=== PATIENT | female | born 1985 | race Caucasian/White ===

== ENCOUNTER 2019-04-30 12:49 | Emergency (ER) | payer BC, SELFPAY ==
[2019-04-30 13:03] VITALS: BP 111/68; PULSE 112; RESP 20; TEMP 39.6; O2SAT 100
--- NOTE | 2019-04-30 13:03 | ED.GENADULT ---
HPI - General Adult General Chief complaint: Upper Respiratory Infection Stated complaint: FEVER/CHILLS Time Seen by Provider: 04/30/19 13:03 Source: patient and RN notes reviewed Mode of arrival: ambulatory Limitations: no limitations History of Present Illness HPI narrative: 33-year-old female with complaints of upper respiratory infection symptoms, congestion, body aches, and cough for 2 days. Ibuprofen (200mg last this morning at 08:30) with little relief. Dry cough. No chest congestion. Rhinorrhea and nasal congestion. No exacerbating factors. High fevers, highest 101.5F, orally with chills and sweats. No nausea, vomiting, and abdominal pain. Denies sore throat, chest pain, dyspnea, coughing up blood, difficulty swallowing, jaw pain, dental pain, facial pain, foreign body sensation, and rash. Ramila denies being , LMP 03/20/20 says she is due today or tomorrow. Some parts of this dictation were generated by voice recognition software and may contain typographical and/or grammatical inaccuracies. Related Data Allergies Allergy/AdvReac Type Severity Reaction Status Date / Time cat dander Allergy Unknown Verified 02/22/19 10:58 Review of Systems Review of Systems: Narrative: CONSTITUTIONAL: Complains of fever, chills, sweats. EYES: Denies visual changes, redness, discharge. ENT: Complains of rhinorrhea, congestion. Denies sore throat. otalgia. CARDIOVASCULAR: Denies chest pain, palpitations, edema. RESPIRATORY: Denies dyspnea, wheezing. Complains of dry cough. GASTROINTESTINAL: Denies abdominal pain, nausea, vomiting, diarrhea. GENITOURINARY: Denies dysuria, hematuria, abnormal discharge SKIN: Denies rash or itching. MUSCULOSKELETAL: Denies acute back pain, joint pain, or myalgia. NEUROLOGIC: Denies numbness or focal weakness. PSYCHIATRIC: Denies anxiety or depression. PMFSH Social History Social History Gender identity (if verbalized by the patient): Female Comments At time of signature, agree with nurse past medical, surgical, social, and family history. There is no relevant family history pertinent to the presenting complaint. Exam Narrative: Exam Narrative: GENERAL: This is a well-nourished, well-developed patient, in no apparent distress. Speaks in full sentences and ambulates with steady gait without dyspnea. HEAD: normocephalic, atraumatic. EYES: PERRL. Sclera clear/white. Vision is grossly intact. EARS: External ears normal, auditory canals clear and without drainage, TMs normal without perforation. Hearing grossly intact. NOSE: External nose normal with no obvious nasal discharge, nares with mild redness and enlarged turbinates, clear rhinorrhea. THROAT: Mucous membranes moist, posterior pharynx with PND, mild erythema, and no exudate to tonsils. Tonsils normal. No drainage, no concern for Peritonsillar abscess. No drooling, trismus, or neck swelling. NECK: Neck supple, non-tender without lymphadenopathy, masses or thyromegaly. CARDIOVASCULAR: Regular rate and rhythm without murmurs, gallops, or rubs. RESPIRATORY: Clear to auscultation. Breath sounds equal bilaterally. No wheezes, rales, or rhonchi. GASTROINTESTINAL: Abdomen soft, non-tender, nondistended. Bowel sounds are active. No hepato-splenomegaly, or palpable masses. No guarding. SKIN: warm, intact with no suspicious lesions or rash, good texture and turgor. NEURO: awake, alert, and oriented to person, place and time. There were no obvious focal neurologic abnormalities. EXTREMITIES: No clubbing, cyanosis, or edema. BACK: Nontender without deformity or crepitance. No flank tenderness with palpation. Bry Coma Scale Eye Opening: Spontaneous 4 Emerson Coma Scale Motor: Obeys Commands 6 Bry Coma Scale Verbal: Oriented 5 Course Vital Signs Vital signs: Vital Signs Temperature 39.6 C H 04/30/19 13:03 Pulse Rate 112 H 04/30/19 13:03 Respiratory Rate 04/30/19
[2019-04-30 13:11] VITALS: BP 113/64; PULSE 77; RESP 20; TEMP 37.7; O2SAT 98
[2019-04-30 13:39] VITALS: BP 109/69; PULSE 90; RESP 20; TEMP 38.3; O2SAT 100
== END 2019-04-30 13:13 | disposition home or self-care (01) ==
PROVIDERS: Emergency Provider Nurse Practitioner Family
DX: J10.1 Influenza due to other identified influenza virus with other respiratory manifestations (principal)
CPT/HCPCS: 87804; 99213; G0463

== ENCOUNTER 2021-09-07 14:48 | Emergency (ER) | payer OTHER, SELFPAY ==
[2021-09-07 15:02] VITALS: BP 108/81; PULSE 92; RESP 18; TEMP 36.5; O2SAT 100
--- NOTE | 2021-09-07 15:02 | ED.URI ---
HPI - URI/Sore Throat General Chief Complaint: Upper Respiratory Infection Stated Complaint: Diarrhea,Shortness of Breath,Rt Ear Irritation Time Seen by Provider: 09/07/21 15:02 History of Present Illness HPI Narrative: Ramila Avendano is a 36 yo female with no PMH wgo comes to express care with c/o R ear pain and diarrhea. States that Imodium x 1and Tums not,helpful for diarrhea. Patient's had symptoms of diarrhea for almost 6 days that started with abdominal pain and diarrhea now the pain is gone away and is just diarrhea; has been taking water but is unable to really eat; he has had 30 ounces of water today states that when she eats she has diarrhea. This morning she felt dizzy when she tried to get up. Related Data Allergies Allergy/AdvReac Type Severity Reaction Status Date / Time No Known Allergies Allergy Verified 09/07/21 14:50 Review of Systems Review of Systems: CONSTITUTIONAL: Denies fever, chills, sweats. EYES: Denies visual changes, redness, discharge. ENT: Denies rhinorrhea, congestion, sore throat, right otalgia. CARDIOVASCULAR: Denies chest pain, palpitations, edema. RESPIRATORY: Denies dyspnea, wheezing, cough GASTROINTESTINAL: Denies abdominal pain, nausea, vomiting, is having diarrhea x6 days. GENITOURINARY: Denies dysuria, hematuria, abnormal discharge SKIN: Denies rash or itching. NEUROLOGIC: Denies numbness, or focal weakness. PSYCHIATRIC: Denies anxiety or depression. PMFSH Past Medical History Medical History No acute medical problems Social History Social History (Updated 09/07/21 @ 15:24 by Desire Velazquez CNP) Smoking status: Never smoker Alcohol intake: current Gender identity (if verbalized by the patient): Female Comments At time of signature, I agree with nursing past medical, surgical, social and family history. There is no relevant family history pertinent to the presenting complaint. Exam Narrative: GENERAL: This is a well-nourished, well-developed patient, in moderatedistress. HEAD: normocephalic, atraumatic. EYES: Sclera clear/white. Vision is grossly intact. EARS: External ears normal, auditory canals clear on left and erythema on right and without drainage, TMs normal without perforation. Hearing grossly intact. NOSE: External nose normal without nasal discharge, nares without redness, mild rhinorrhea. THROAT: Mucous membranes moist, posterior pharynx mild erythema NECK: Neck supple, non-tender CARDIOVASCULAR: Regular rate and rhythm without murmurs, gallops, or rubs. RESPIRATORY: Clear to auscultation. Breath sounds equal bilaterally. No wheezes, rales, or rhonchi. GASTROINTESTINAL: Abdomen soft, non-tender, hyperactive bowel sounds SKIN: warm, intact with no suspicious lesions or rash, good texture and turgor. NEURO: awake, alert, and oriented to person, place and time. There were no obvious focal neurologic abnormalities. Steady gait EXTREMITIES: Normal range of motion. BACK: Nontender without deformity Course Course Emergency Course: Patient has had diarrhea x6 days, has had abdominal pain that has resolved but continues to have difficulty staying hydrated; has right ear pain also Ear will be treated with polymyxin and to take Zyrtec every day for the next week to 10 days Louis management of diarrhea with Imodium and follow box directions, started on Bentyl, and Protonix, and brat diet-patient is being treated like she has enteritis she is to call one of the physicians on the physician referral list has been provided to her for follow-up Precautions given for her to go to the ER Level of Care: Express Care Visit Vital Signs Vital signs: Vital Signs Temperature 97.7 F 09/07/21 15:02 Pulse Rate 92 09/07/21 15:02 Respiratory Rate 18 09/07/21 15:02 Blood Pressure 108/81 09/07/21 15:02 Pulse Oximetry 100 09/07/21 15:02 Oxygen Delivery Room Air 09/07/21 15:02 Temperature 97.7 F
== END 2021-09-07 15:30 | disposition home or self-care (01) ==
LOC: EXPTROY 14:51
PROVIDERS: Emergency Provider Nurse Practitioner
DX: K52.9 Noninfective gastroenteritis and colitis, unspecified (principal); H66.001 Acute suppurative otitis media without spontaneous rupture of ear drum, right ear
CPT/HCPCS: 87804; 99213; G0463

== ENCOUNTER 2022-04-11 09:33 | Emergency (ER) | payer OTHER, SELFPAY ==
[2022-04-11 09:44] VITALS: BP 94/67; PULSE 86; RESP 16; TEMP 37.1; O2SAT 100
--- NOTE | 2022-04-11 09:45 | ED.URI ---
HPI - URI/Sore Throat General Chief Complaint: Upper Respiratory Infection Stated Complaint: Sore Throat,Rt Ear Irritation Time Seen by Provider: 04/11/22 09:49 History of Present Illness HPI Narrative: 36 y/o female presented for c/o sore throat and right ear pain for 2 days. Endorses temperature up to 100.2 last night. Pain is worse with swallowing. Denies associated sinus pressure, congestion, cough, shortness of breath, wheezing, nausea, vomiting, diarrhea. Denies sick contacts. She has not taking anything for symptoms. Related Data Allergies Allergy/AdvReac Type Severity Reaction Status Date / Time No Known Allergies Allergy Verified 04/11/22 09:41 Review of Systems Review of Systems: CONSTITUTIONAL: Denies body aches, fever, chills, or sweats. EYES: Denies visual changes, redness, or discharge. ENT: Denies rhinorrhea, congestion CARDIOVASCULAR: Denies chest pain, palpitations, or edema. RESPIRATORY: Denies dyspnea. GASTROINTESTINAL: Denies abdominal pain, nausea, vomiting, or diarrhea. SKIN: Denies rash, itching, or wounds. MUSCULOSKELETAL: Denies back pain, joint pain, or myalgia. NEUROLOGIC: Denies headache PMFSH Past Medical History Medical History No acute medical problems Social History Social History Smoking status: Never smoker Alcohol intake: current Gender identity (if verbalized by the patient): Female Exam Narrative: GENERAL: Ill-appearing, no acute distress. EYES: conjunctivae clear ENT: Mucous membranes moist. Left TM pearly montoya with normal light reflex; Right TM with dull light reflex and effusion; no tragal tenderness. Oropharynx erythematous Tonsils enlarged 2+ without exudate. No drooling, no hoarseness, no trismus, uvula midline. No tripod positioning, hot potato voice, or soft palate swelling. NECK: Supple. No lymphadenopathy CHEST: Clear to auscultation, breath sounds equal. HEART: Regular rate and rhythm. No murmur heard. SKIN: Warm, dry, no rash. NEURO: Alert and oriented x3. Course Course Emergency Course: Patient is aware of diagnosis, understands and agrees to treatment plan. Anticipatory guidance given. Patient agrees to follow-up as directed and is aware of reasons to seek care at the emergency department. Portions of this record may have been created with voice recognition software Level of Care: Express Care Visit Vital Signs Vital signs: Vital Signs Temperature 98.8 F 04/11/22 09:44 Pulse Rate 86 04/11/22 09:44 Respiratory Rate 16 04/11/22 09:44 Blood Pressure 94/67 L 04/11/22 09:44 Pulse Oximetry 100 04/11/22 09:44 Oxygen Delivery Room Air 04/11/22 09:44 Temperature 98.8 F 04/11/22 09:44 Pulse Rate 86 04/11/22 09:44 Respiratory Rate 16 04/11/22 09:44 Blood Pressure 94/67 L 04/11/22 09:44 Pulse Oximetry 100 04/11/22 09:44 Oxygen Delivery Room Air 04/11/22 09:44 MDM - URI/Sore Throat MDM Narrative Medical decision making narrative: strep result reviewed with pt. Advise supportive treatments. Patient is appropriate for outpatient treatment and follow-up. Differential Diagnosis Differential diagnosis: Likely upper respiratory infection, otitis media, sinusitis, viral infection, influenza and pharyngitis Discharge Plan Discharge Clinical Impression: Strep pharyngitis Patient Disposition: Home, Self-Care Condition: Stable Instructions: Antibiotic Form Additional Instructions: - Take the antibiotic as directed. Fever and sore throat typically resolve within one to three days. Most patients can return to work after 12 to 24 hours of antibiotic therapy, provided you are fever free and otherwise well. -Eat and drink things that are easy to swallow, like soft foods, cool liquids, tea with honey, or popsicles . -Salt water gargles and/or may use topical anesthetic ( Chloraseptic
== END 2022-04-11 10:07 | disposition home or self-care (01) ==
PROVIDERS: Emergency Provider Nurse Practitioner Family
DX: J02.0 Streptococcal pharyngitis (principal)
CPT/HCPCS: 87880; 99213; G0463

== ENCOUNTER 2024-08-11 15:24 | Emergency (ER) | payer OTHER, SELFPAY ==
--- NOTE | ~2024-08-11 | XR_ITS ---
XR ankle LT min 3V Ordering provider: Boaz Richey APRN History: . ankle swelling/pain,no injury,she is a runner . Comparison: None. FINDINGS: BONES: No acute fracture or dislocation. JOINT SPACES: The ankle mortise is normal. SOFT TISSUES: Normal. IMPRESSION: No acute osseous abnormality left ankle. Reviewed, dictated and finalized at location A.
--- OUTSIDE RECORDS SUMMARY | 2024-08-11 15:28 | XMS_ITS | Clinical Summary ---
Author Organization [facility] Address [address] [place] [address] Care Team Providers Care Indigo Vat Tender Cloth Name Role Phone Jessica Christian SYSTEM PROGRAMMER-ASTRONOMY PROFESSOR Primary Care Provider Source Comments [facility],non-owned Affiliates and Associated Physician Practices is amultiple site organization consisting of ambulatory clinics and hospital sitesin [place], [place], [place] and [place]. This disclosure is being madepursuant to the Care Everywhere program and may not contain all information available regarding this patient. Last updated 17.[facility] Allergies No known active allergies Medications * Be aware that medications may not be up to date on this document. Alwaysverify current medications with the patient. fluticasone propionate (FLONASE) 50 MCG/ACT nasal spray [place] 2 sprays into each nostril once daily 1 bottles 05/21/2017 Active ibuprofen (Motrin) 800 MG tablet Take 1 (one) tablet by mouth every 6 hours as needed for Pain 30 tablet 09/26/2022 Active cyclobenzaprine (Flexeril) 10 MG tablet Take 1 (one) tablet by mouth 3 times daily as needed for Muscle Spasms 30 tablet 09/26/2022 Active Family History Relation Name Status Comments Father Alive Mother Alive Social History Tobacco Use Types Packs/Day Years Used Date Smoking Tobacco: Never Smokeless Tobacco: Never Comments No Sex and Gender Information Value Date Recorded Sex Assigned at Not on file Legal Sex Female 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 Gender Identity Not on file Sexual Orientation Not on file Last Filed Vital Signs Vital Sign Reading Time Taken Comments Blood Pressure 110/64 09/26/2022 6:00 PM CDT Pulse 87 09/26/2022 4:58 PM CDT Temperature 36.9 C (98.4 F) 09/26/2022 4:58 PM CDT Respiratory Rate 18 09/26/2022 4:58 PM CDT Oxygen Saturation 98% 09/26/2022 6:00 PM CDT Inhaled Oxygen Concentration - - Weight 65.8 kg (145 lb) 09/26/2022 4:58 PM CDT Height 160 cm (5' 3 ) 09/26/2022 4:58 PM CDT Body Mass Index 25.69 09/26/2022 4:58 PM CDT Plan of Treatment Health Maintenance Due Date Last Done Comments MAMMOGRAM 1983 PAP SMEAR 1983 DTAP/TDAP/TD VACCINES (1 - Tdap) 06/12/2002 HEPATITIS B VACCINE (1 of 3 - 19+ 3-dose series) 06/12/2002 COVID-19 VACCINE ( - 2023-2 5 season) 2023 05/21/2020, 04/22/2020 DEPRESSION SCREENING 04/02/2024 INFLUENZA VACCINE (Season Ended) 2024 03/12/2018, 02/12/2017, 03/13/2015 LIPID TESTING 05/29/2027 05/29/2022 ZOSTER VACCINE (1 of 2) 06/12/2033 HEPATITIS C SCREENING Completed 06/05/2019 HIV SCREENING Completed 10/20/2019, 06/05/2019 HIB VACCINE Aged Out No longer eligi ble based on patient's age to complete this topic HPV VACCINE Aged Out No longer eligi ble based on patient's age to complete this topic MENINGOCOCCAL (Group B) VACCINE SHARED DECISION-MAKING Aged Out No longer eligible based on patient's age to complete this topic MENINGOCOCCAL GROUPS A/C/Y/W VACCINE Aged Out No longer eligible b ased on patient's age to complete this topic PNEUMOCOCCAL VACCINE Aged Out No long er eligible based on patient's age to complete this topic Insurance AETNA TPL THIRD [employer]PUBL[place] LIABILITY AETNA Care Teams Indigo Vat Tender Cloth Relationship Specialty Start Date End Date Jessica Christian APRN-MARJ [id number] [facility] [address] [place] [address] PCP - General 09/26/22
--- NOTE | 2024-08-11 15:30 | ED_ITS ---
HPI - Extremity Injury (Lower) General Chief Complaint: Extremity Injury, Lower Stated Complaint: swollen ankle Time Seen by Provider: 08/11/24 15:29 Source: patient Mode of arrival: ambulatory Limitations: no limitations History of Present Illness HPI Narrative: Ramila is a 39-year-old female patient presenting to the clinic today with complaints of left ankle swelling and discomfort. No known injury. She reports swelling is worse as the day gradually progresses. It is best in the morning when she wakes up. Is having pain over the left medial ankle. Patient is an active runner Related Data Allergies Allergy/AdvReac Type Severity Reaction Status Date / Time No Known Allergies Allergy Verified 08/11/24 16:04 Review of Systems Review of Systems: Pertinent positives per HPI. Patient denies any fever, chills, rash, headache, visual changes, dizziness, cough, runny nose, sore throat, shortness of breath, chest pain, palpitations, nausea, vomiting, diarrhea, constipation, abdominal pain, or any urinary issues. PMFSH Past Medical History Medical History No acute medical problems Social History Social History Smoking status: Never smoker Alcohol intake: current Gender identity (if verbalized by the patient): Female Comments At the time of my signature, I reviewed and agree with the nursing past medical, surgical, social, and family history. There is no relevant family history pertinent to the patient complaint. Exam Narrative: General: Well-developed, well nourished, in no apparent distress Head: Normocephalic, atraumatic. Cardio: Regular rate and rhythm, s1 and s2 normal, no murmur appreciated. Resp: Clear to auscultation bilaterally, no rhonchi, rales, wheezing or rubs. Musculoskeletal: No deformity, no varicose veins visible, mild swelling noted to the left ankle, mild tender to palpation over the medial left ankle, grossly normal range of motion, muscle strength strong and equal, peripheral pulse st [place], no cyanosis, normal gait and station Course Course Emergency Course: Portions of this record may have been created with voice recognition software. Level of Care: Express Care Visit Vital Signs Vital signs: Vital Signs Temperature 36.8 C 08/11/24 15:36 Pulse Rate 72 08/11/24 15:36 Respiratory Rate 18 08/11/24 15:36 Blood Pressure 131/82 08/11/24 15:36 Pulse Oximetry 100 08/11/24 15:36 Oxygen Delivery Room Air 08/11/24 15:36 Temperature 36.8 C 08/11/24 15:36 Pulse Rate 72 08/11/24 15:36 Respiratory Rate 18 08/11/24 15:36 Blood Pressure 131/82 08/11/24 15:36 Pulse Oximetry 100 08/11/24 15:36 Oxygen Delivery Room Air 08/11/24 15:36 Vital signs reviewed MDM - Extremity Injury (Lower) MDM Narrative Medical decision making narrative: At the time of visit patient is resting comfortably on the exam table. Patient appears to be nontoxic. Diagnostics: X-ray of the left ankle was performed and negative for any sign of fracture or malalignment Plan: I suspect patient has left ankle joint swelling. Supportive measures were discussed with the patient and they voiced understanding discharge instructions and agrees to treatment plan. Return precautions reviewed Differential Diagnosis Differential diagnosis: Likely ankle sprain and strain, ankle fracture and other (Venous insufficiency, lower extremity edema, stress fracture,) Imaging Data Radiologist's impression: ITS Impressions Ankle X-Ray 08/11/24 16:05 IMPRESSION: No acute osseous abnormality left ankle. Discharge Plan Discharge Clinical Impression: Left ankle swelling Patient Disposition: Home Condition: Stable Instructions: Antibiotic Form, Swollen Ankle Joint (ED) Additional Instructions: X-rays negative for any acute osseous abnormality of the left ankle Rest, ice, elevate, and wear nhung wrap as directed Tylenol/motrin for pain as discussed. Follow up with your PCP if symptoms persist more than 1 week. Patient Language: Upper Sorbian Prescriptions: No Action pantoprazole [Protonix] 20 mg tablet,delayed release (DR/EC) 20 mg PO QAM Qty: 14 0RF Follow-up/Referrals: Gino,Jessica Marin APRN [Primary Care Provider] - Time of Disposition: 16:14 Quality NIHSS Nursing Documentation ED NIHSS nursing documentation: reviewed/agree
--- OUTSIDE RECORDS SUMMARY | 2024-08-11 15:30 | XMS_ITS | Encounter Summary ---
Author Organization [facility] Address [address] [place] [address] Care Team Providers Care Trust Administrator Name Role Phone Jessica Christian APRN Primary Care Provider [phone]- [phone] Encounter Details Date Type Department Care Team (Late st Contact Info) Description 05/02/[address] [facility] Family & Internal Medicine [facility] [address] [place] [address] [employer], [facility] Provider Mammo results Social History Tobacco Use Types Packs/Day Years Used Date Smoking Tobacco: Never Smokeless Tobacco: Never Alcohol Use Standard Drinks/Week Comments Not Currently 0 (1 standard drink = 0.6 oz pur e alcohol) Overall Financial Resource Strain (CARDIA) Answe r Date Recorded How hard is it for you to pa y for the very basics like food, housing, medical care, and heating? Not hard at all 05/25/2022 PHQ-2 Answer Date Recorded Patient Health Questionnaire-2 Score 0 12/28/2023 Hunger Vital Sign Answer Date Recorded Within the past 12 months, y ou worried that your food would run out before you got the money to buy more. Never true 05/25/19 23 Within the past 12 months, t he food you bought just didn't last and you didn't have money to get more. Never true 05/25/2022 PRAPARE - Transportation Answer Date Re corded In the past 12 months, has l ack of transportation kept you from medical appointments or from getting medications? No 05/04 In the past 12 months, has l ack of transportation kept you from meetings, work, or from getting things needed for daily living? No 05/25/2022 Housing Stability Vital Sign Answer [place] e Recorded In the last 12 months, was t here a time when you were not able to pay the mortgage or rent on time? No 05/25/2022 In the last 12 months, how many places have you lived? 1 05/25/2022 In the last 12 months, was t here a time when you did not have a steady place to sleep or slept in a retirement (including now)? No 05/25/2022 Comments No Sex and Gender Information Value Date Recorded Sex Assigned at Not on file Legal Sex Female 7:00 PM CDT Gender Identity Not on file Sexual Orientation Not on file documented as of this encounter Functional Status * RETIRED Are you deaf or do you have serious difficulty hearing Answer Date of Assessment Author Status No 12/31/2019 5:48 AM CDT Activ e * RETIRED Are you blind or do you have serious difficulty seeing, even when wearing glasses? Answer Date of Assessment Author Status No 12/31/2019 5:48 AM CDT Activ e * Do you have serious difficulty walking or climbing stairs? Answer Date of Assessment Author Status No 12/31/2019 5:48 AM CDT Carlota Klein RN Active * Do you have difficulty dressing or bathing? Answer Date of Assessment Author Status No 12/31/2019 5:48 AM CDT Carlota Klein RN Active * Because of a physical, mental, or emotional condition, do you have difficulty doing errands alone such as visiting a doctor's office or shopping? Answer Date of Assessment Author Status No 12/31/2019 5:48 AM CDT Carlota Klein RN Active documented as of this encounter Mental Status * Because of a physical, mental, or emotional condition, do you have serious difficulty concentrating, remembering, or making decisions? Answer Entry Date Author Status No 12/31/2019 5:48 AM LUIS [place] Carlota Klein RN Active documented in this encounter Plan of Treatment Upcoming Encounters Date Type Department Care Team (Late st Contact Info) Description 08/15/2024 8:20 AM CDT Office Visit [facility] Family & Internal Medicine [facility] [address] [place] [address] Jessica Christian APRN [id number] [address] 12/29/2024 2:20 PM CDT Office Visit [facility] Family & Internal Medicine [facility] [address] [place] [address] Jessica Christian APRN [id number] [address] documented as of this encounter Visit Diagnoses Not on filedocumented in this encounter Additional Health Concerns Assessment Noted Time PHQ-9 Depression Total Score: 1 12/28/19 24 11:34 AM CDT documented as of this encounter Care Teams Trust Administrator Relationship Specialty Start Date End Date Jessica Christian APRN [id number] [address] PCP - General NURSE PRACTITIONER 05/09/22 documented as of this encounter
--- OUTSIDE RECORDS SUMMARY | 2024-08-11 15:30 | XMS_ITS | Encounter Summary ---
Author Organization [facility] Address [address] [place] [address] Care Team Providers Care Billing Spec Name Role Phone Jessica Christian APRN Primary Care Provider [phone]- [phone] Encounter Details Date Type Department Care Team (Late st Contact Info) Description 03/28/2024 [employer] Message Enc [facility] Family & Internal Medicine [facility] [address] [place] [address] Jessica Christian APRN [id number] [address] Mammogram order Social History Tobacco Use Types Packs/Day Years [...] money to buy more. Never true 05/25/19 Within the past 12 months, t he [...] place to sleep or slept in a half-way (including now)? No 05/25/2022 Comments No Sex [...] Assessment Author Status No 12/31/2019 5:48 AM Carloat May RN Active * Do you have difficulty dressing or bathing? Answer Date of Assessment Author Status No 12/31/2019 5:48 AM Carlota May RN Active * Because of a physical, mental, or emotional condition, do you have difficulty doing errands alone such as visiting a doctor's office or shopping? Answer Date of Assessment Author Status No 12/31/2019 5:48 AM Carlota May RN Active documented as of this encounter Mental Status * Because of a physical, mental, or emotional condition, do you have serious difficulty concentrating, remembering, or making decisions? Answer Entry Date Author Status No 12/31/2019 5:48 AM CDT Veller, Carlota A, RN Active documented in this encounter Plan of Treatment Upcoming Encounters Date Type Department Care Team (Late st Contact Info) Description 08/15/2024 8:20 AM CDT Office Visit [facility] Family & Internal Medicine [facility] [address] [place] [phone] Jessica Christian APRN [id number] [address] 12/29/2024 2:20 PM CDT Office Visit [facility] Family & Internal [facility] [address] [place] [address] Jessica Christian APRN [id number] [address] documented as of this encounter Visit Diagnoses Not on filedocumented in this encounter Additional Health Concerns Assessment Noted Time PHQ-9 Depression Total Score: 1 12/28/19 24 11:34 AM CDT documented as of this encounter Care Teams Billing Spec Relationship Specialty Start Date End Date Jessica Christian APRN [id number] [address] PCP - General NURSE PRACTITIONER 05/09/22 documented as of this encounter
--- OUTSIDE RECORDS SUMMARY | 2024-08-11 15:30 | XMS_ITS | Clinical Summary ---
Author Organization [facility] Address [address] [place] [address] Care Team Providers Care Derrick Barge Operator Name Role Phone Jessica Christian APRN Primary Care Provider [phone] Allergies Active Allergy Reactions Criticality Noted Date Comments Cat Dander Itching,Runny Nose,Shortness of Breath High 12/28/2023 Medications No known medications Active Problems No known active problems Resolved Problems Problem Noted Date Diagnosed Date Resolved Date ([facility]) 12/31/2019 11/18/19 23 Immunizations Immunization Administration Dates Next Due Influenza (Generic) 02/12/2017,03/13/2015 Influenza Adult (Generic) 03/12/2018 MODERNA COVID-19 (12+) MRNA, LNP-S, PF, 100 MCG/ 0.5 ML DOSE 05/21/2020,04/22/2020 Tdap (Generic) 10/20/2019 Family History Medical History Relation Comments COPD Maternal Grandmother Breast Cancer Mother Cancer Mother Breast Cancer Paternal Aunt 1 Cancer Paternal Aunt 1 Breast cancer Breast Cancer Paternal Aunt 2 Breast Cancer Paternal Aunt 3 UNSURE OF AGE Breast Cancer Paternal Grandmother Relation Status Comments Father Alive Maternal Grandmother Mother Alive Paternal Aunt 1 Alive Paternal Aunt 2 Alive Paternal Aunt 3 Alive Paternal Grandmother Social History Tobacco Use Types Packs/Day Years Used Date Smoking Tobacco: Never Smokeless Tobacco: Never Tobacco Cessation:Counseling Given: No Alcohol Use Standard Drinks/Week Comments Not Currently 0 (1 standard drink = 0.6 oz pur e alcohol) Overall Financial Resource Strain (CARDIA) Thaie r Date Recorded How hard is it [...] place to sleep or slept in a fdc (including now)? No 05/25/2022 Comments No Sex and Gender Information Value Date Recorded Sex Assigned at Not on file Legal Sex Female 7:00 PM CDT Gender Identity Not on file Sexual Orientation Not on file Last Filed Vital Signs Vital Sign Reading Time Taken Comments Blood Pressure 110/73 12/28/2023 10:47 AM CDT Pulse 64 12/28/2023 10:47 AM CDT Temperature 35.5 C (95.9 F) 12/28/2023 10:47 AM CDT Respiratory Rate 16 12/28/2023 10:47 AM CDT Oxygen Saturation 97% 12/28/2023 10:47 AM CDT Inhaled Oxygen Concentration - - Weight 68.7 kg (151 lb 6.4 oz) 12/28/2023 10:47 AM CDT Height 160 cm (5' 3 ) 12/28/2023 10:47 AM CDT Body Mass Index 26.82 12/28/2023 10:47 AM CDT Plan of Treatment Upcoming Encounters Date Type Department Care Team (Late st Contact Info) Description 08/15/2024 8:20 AM CDT Office Visit [facility] [address] [place] [phone] Jessica Christian, SOFTWARE TEAM LEADER [address] [place] [phone] 12/29/2024 2:20 PM CDT Office Visit [facility] [address] [place] [phone] Jessica Christian, SOFTWARE TEAM LEADER [address] [place] [phone] Health Maintenance Due Date Last Done Comments Cervical Cancer Screening Pa p Smear (Age 30 to 64) Every 3 Years 1983 Hepatitis C 06/12/2001 Hepatitis B Vaccines (1 of 3 - 19+ 3-dose series) 06/12/2002 Cervical Cancer Screening Pa p with HPV Testing (Age 30 to 64) Every 5 Years 06/12/2013 Cervical Cancer Screening with HPV 06/12/2013 PHQ-2 (Physician [place]) 04/02/2024 12/28/2023 Annual Physical 12/27/2024 12/28/2023, 05/22/2022 COVID-19 Vaccine (3 - 2023-2 5 season) 2024 05/21/2020, 04/22/2020 Postponed from 12/02/2023 (Patient Refused) Mammogram Screening 05/02/2026 05/02/2024, 04/27/2023 DTaP, Tdap and Td Vaccines ( 2 - Td or Tdap) 10/19/2029 10/20/2019 HPV Vaccines Aged Out No longer eligi ble based on patient's age to complete this topic Meningococcal B Vaccine Aged Out No l onger eligible based on patient's age to complete this topic Meningococcal Vaccine Aged Out No isis paddy eligible based on patient's age to complete this topic Pneumococcal Vaccine: Pediatrics (0 to 5 Years) and At-Risk Patients (6 to 49 Years) Aged Out No longer eligible b ased on patient's age to complete this topic RSV Immunizations Under 20 Months Aged Out No longer eligible b ased on patient's age to complete this topic Procedures Procedure Name Priority Date/Time Associated Diagnosis Comments MG SCREENING W TRENT TIKI DIGI Routine 05/02/2024 12:19 PM BUILDING ASSOCIATE Encounter for screening mammogram for malignant neoplasm of breast Family history of breast cancer from Last 3 Months or Most Recently Relevant to Health Maintenance Results * MG SCREENING W TRENT TIKI DIGI (05/02/2024 12:19 PM BUILDING ASSOCIATE) Anatomical Region Laterality Modality Breast Bilateral Mammography 05/02/2024 12:4 6 PM BUILDING ASSOCIATE Impressions 05/02/2024 12:52 PM BUILDING ASSOCIATE ===== IMPRESSION: ===== 1. Stable mammographic appearance with no new findings to suggest malignancy in either breast. Assessment: ACR BI-RADS 1 - NEGATIVE Recommendation: 1:Routine Screening Bilateral Comments: Ordered By: JESSICA CHRISTIAN Interpreted By: Thao Sullivan, 05/02/2024 12:46 PM Narrative 05/02/2024 12:52 PM BUILDING ASSOCIATE [facility] [address] [place] [address] EXAMINATION: Digital bilateral screening mammogram with 3-D tomosynthesis EXAM DATE/TIME: 05/02/2024 10:53 AM REASON FOR EXAM: screening for breast cancer, Family history of breast cancer Breast carcinoma in mother at age 65 and paternal grandmother in her 70s. 3 paternal aunts with breast carcinoma in their 60s COMPARISON: 04/27/2023 Technique: Digital screening mammography of both breasts was performed in addition to 3-D Tomosynthesis technique. This study was read with the assistance of a computer-aided detection system. Tissue density: The breasts are heterogeneously dense, which may obscure small masses. Findings: There is no new focal asymmetry, dominant mass lesion, area of skin thickening, or cluster of suspicious appearing calcifications in either breast to suggest malignancy. 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
[2024-08-11 15:36] VITALS: BP 131/82; PULSE 72; RESP 18; TEMP 36.8; O2SAT 100
== END 2024-08-11 16:15 | disposition home or self-care (01) ==
PROVIDERS: Emergency Provider Nurse Practitioner Family; PCP Registered Nurse
DX: M25.472 Effusion, left ankle (principal)
CPT/HCPCS: 73610; 99213; G0463